=== PATIENT | male | born 1970 | race Caucasian/White ===

== ENCOUNTER 2024-01-01 15:52 | Emergency (ER) | payer OTHER ==
[2024-01-01 16:41] LABS: BASOPHILS % 0.7 % (0.0-2.0); EOSINOPHILS % 1.3 % (0.0-5.0); HEMATOCRIT. 40.7 % (42.0-52.0); HEMOGLOBIN. 13.6 g/dL (14.0-18.0); LYMPHOCYTES % 18.8 % (20.0-50.0); MEAN CORPUSCULAR HEMOGLOBIN 27.7 pg (28.0-32.0); MEAN CORPUSCULAR HGB CONC 33.5 g/dL (31.0-37.0); MEAN CORPUSCULAR VOLUME 82.8 fL (80.0-94.0); MEAN PLATELET VOLUME 6.7 fl (7.4-10.4); MONOCYTES % 7.5 % (2.0-8.0); NEUTROPHILS % 71.7 % (40.0-76.0); PLATELET 345 x1000/uL (130-400); RED BLOOD CELL COUNT 4.91 mill/uL (4.7-6.1); RED CELL DISTRIBUTION WIDTH 14.2 % (11.6-14.6); WHITE BLOOD COUNT 7.1 x1000/uL (4.5-11.0)
[2024-01-01 16:43] LABS: CHLORIDE 101 mEq/L (98-107); POTASSIUM 3.2 mEq/L (3.5-5.1); SODIUM 136 mEq/L (136-145)
[2024-01-01 16:44] LABS: CALCIUM 9.2 mg/dL (8.7-10.4); CARBON DIOXIDE 27 mEq/L (21-32)
[2024-01-01 16:49] LABS: CREATININE 0.8 mg/dL (0.6-1.3); GLUCOSE 123 mg/dL (70-105); INR 0.9; PROTHROMBIN TIME 10.4 sec (9.6-11.0); UREA NITROGEN BLOOD 11 mg/dL (9-23)
[2024-01-01 16:51] LABS: ETHANOL BLOOD < 10 mg/dL (<10); TROPONIN I HIGH SENSITIVITY < 4 ng/L (3.0-53)
[2024-01-01 16:57] LABS: CLARITY URINE CLEAR (CLEAR); COLOR URINE YELLOW (YELLOW); GLUCOSE URINE NEGATIVE (NEGATIVE); KETONES URINE NEGATIVE (NEGATIVE); LEUKOCYTE ESTERASE URINE NEGATIVE (NEGATIVE); NITRITE URINE NEGATIVE (NEGATIVE); OCCULT BLOOD URINE NEGATIVE (NEGATIVE); PROTEIN URINE NEGATIVE (NEGATIVE); UROBILINOGEN URINE 0.2 E.U./dL (0.2-1.0)
[2024-01-01 17:04] LABS: *AMPHETAMINES SCREEN URINE NEGATIVE (NEGATIVE); *BARBITURATES SCREEN URINE NEGATIVE (NEGATIVE); *BENZODIAZEPINES SCREEN URINE NEGATIVE (NEGATIVE); *COCAINE SCREEN URINE NEGATIVE (NEGATIVE); CANNABINOID URINE SCREEN NEGATIVE (NEGATIVE); METHADONE URINE SCREEN NEGATIVE (NEGATIVE); OPIATES URINE SCREEN NEGATIVE (NEGATIVE); PHENCYCLIDINE URINE SCREEN NEGATIVE (NEGATIVE)
[2024-01-01 17:05] LABS: ECSTASY MDMA SCREEN URINE NEGATIVE (NEGATIVE)
[2024-01-01] MEDS: POTASSIUM CHLORIDE 20MEQ TABLET SR PO ONE (18:21)
[2024-01-01] MEDS: ASPIRIN 81MG TABLET PO ONE (19:08)
[2024-01-01 21:25] VITALS: BP 131/89; PULSE 97; RESP 20; TEMP 98.3
[2024-01-01] MEDS ORDERED: IOHEXOL-350 100 ML BOTTLE ONE (22:46)
== END 2024-01-01 19:54 ==
LOC: ER 15:52 → EDBEDREQTM 20:02 → EDBEDREQ 20:02 → CANBEDREQ 22:00
DX: I63.89 Other cerebral infarction (principal); E87.6 Hypokalemia; I10 Essential (primary) hypertension
CPT/HCPCS: 80305; 80048; 81003; 80320; 83880; 85025; 85610; 84484; 36415; 71045; 70496; 70498; 70450; 93005; 99291; Q9967; Z7610; G0480